=== PATIENT | male | born 1955 | race Caucasian/White ===

== ENCOUNTER 2020-01-13 14:24 | Inpatient (IN) | payer MEDICAID, OTHER ==
[~2020-01-13] VITALS: Ht 170.2 cm; Wt 102.2 kg
[2020-01-13] MEDS ORDERED: SODIUM CHLORIDE 0.9% 1000ML BAG (SEPSIS BOLUS) IV ONE (15:00)
[2020-01-13 15:24] LABS: HEMATOCRIT. 42.8 % (42.0-52.0); HEMOGLOBIN. 13.6 g/dL (14.0-18.0); MEAN CORPUSCULAR HEMOGLOBIN 31.2 pg (28.0-32.0); MEAN CORPUSCULAR VOLUME 98.3 fL (80.0-94.0); MEAN PLATELET VOLUME 11.4 fl (7.4-10.4); PLATELET 51 x1000/uL (130-400); RED BLOOD CELL COUNT 4.35 mill/uL (4.7-6.1); RED CELL DISTRIBUTION WIDTH 15.7 % (11.6-14.6)
[2020-01-13 15:27] LABS: CHLORIDE 84 mEq/L (98-107)
[2020-01-13 15:30] LABS: ETHANOL BLOOD < 10 mg/dL; PROTHROMBIN TIME 10.5 sec (9.6-11.0)
[2020-01-13] MEDS ORDERED: INSULIN REGULAR (DRIP) 100 UNITS in SODIUM CHLORIDE 0.9% 100 ML IV ONE (15:45)
[2020-01-13] MEDS ORDERED: LACTATED RINGERS 1,000 ML IV SCH ×3 (16:00→22:30)
[2020-01-13 16:07] LABS: BETA HYDROXYBUTYRATE 14.2 mMol/L (0.0-0.3)
[2020-01-13 16:12] LABS: PHOSPHORUS 5.3 mg/dL (2.5-4.9)
[2020-01-13] MEDS ORDERED: CEFTRIAXONE 1 G PREMIX 50 ML IV ONE (16:15)
[2020-01-13] MEDS ORDERED: METRONIDAZOLE 500 MG PREMIX 100 ML IV ONE (16:15)
[2020-01-13 16:22] LABS: BG BASE EXCESS -24.8 mmol/L (-2.0-2.0); BG CARBOXYHEMOGLOBIN 0.6 % (0.5-1.5); BG DEOXYHEMOGLOBIN 1.6 % (0.0-5.0); BG FRACTION INSPIRED OXYGEN 21; BG HCO3 ACT 2.9 mmol/L (22.0-26.0); BG METHEMOGLOBIN 0.4 % (0.0-1.5); BG OXYGEN SATURATION 98.4 % (92.0-98.5); BG OXYHEMOGLOBIN 97.4 % (94.0-97.0); BG PCO2 9.9 mmHg (35.0-45.0); BG PH 7.078 (7.350-7.450); BG PO2 146.3 mmHg (75.0-100.0); BG SAMPLE SITE RIGHT BRACHIAL; BG TOTAL HEMOGLOBIN 14.4 g/dL (12.0-18.0); BG VENT MODE ROOM AIR
[2020-01-13 16:27] LABS: CLARITY URINE CLEAR (CLEAR); COLOR URINE YELLOW (YELLOW); KETONES URINE 3+ (NEGATIVE); LEUKOCYTE ESTERASE URINE NEGATIVE (NEGATIVE); NITRITE URINE NEGATIVE (NEGATIVE); OCCULT BLOOD URINE 3+ (NEGATIVE); PROTEIN URINE 2+ (NEGATIVE); SPECIFIC GRAVITY URINE 1.024 (1.005-1.030); UROBILINOGEN URINE 0.2 E.U./dL (0.2-1.0)
[2020-01-13 17:33] LABS: PLATELET ESTIMATE DECREASED
[2020-01-13] MEDS ORDERED: IOHEXOL-300 100 ML BOTTLE ONE (18:17)
[2020-01-13 19:21] LABS: PHOSPHORUS 4.5 mg/dL (2.5-4.9)
[2020-01-13 19:51] LABS: BG BASE EXCESS -21.5 mmol/L (-2.0-2.0); BG CARBOXYHEMOGLOBIN 0.5 % (0.5-1.5); BG DEOXYHEMOGLOBIN 1.5 % (0.0-5.0); BG FRACTION INSPIRED OXYGEN 21; BG HCO3 ACT 4.8 mmol/L (22.0-26.0); BG METHEMOGLOBIN 0.2 % (0.0-1.5); BG OXYGEN SATURATION 98.5 % (92.0-98.5); BG OXYHEMOGLOBIN 97.8 % (94.0-97.0); BG PCO2 13.8 mmHg (35.0-45.0); BG PH 7.155 (7.350-7.450); BG PO2 136.7 mmHg (75.0-100.0); BG SAMPLE SITE LEFT RADIAL; BG TOTAL HEMOGLOBIN 14.6 g/dL (12.0-18.0); BG VENT MODE ROOM AIR
[2020-01-13] MEDS ORDERED: INSULIN REGULAR (DRIP) 100 UNITS in SODIUM CHLORIDE 0.9% 99 ML IV SCH (22:30)
[2020-01-13 23:00] LABS: BG CARBOXYHEMOGLOBIN 0.9 % (0.5-1.5); BG DEOXYHEMOGLOBIN 2.1 % (0.0-5.0); BG FRACTION INSPIRED OXYGEN 21; BG HCO3 ACT 9.5 mmol/L (22.0-26.0); BG OXYGEN SATURATION 97.9 % (92.0-98.5); BG PCO2 18.7 mmHg (35.0-45.0); BG PH 7.322 (7.350-7.450); BG PO2 100.7 mmHg (75.0-100.0); BG SAMPLE SITE LEFT RADIAL; BG TOTAL HEMOGLOBIN 14.4 g/dL (12.0-18.0); BG VENT MODE ROOM AIR
[2020-01-13 23:08] LABS: CHLORIDE 97 mEq/L (98-107)
[2020-01-13 23:18] LABS: PHOSPHORUS 2.4 mg/dL (2.5-4.9)
[2020-01-14] VITALS (20 sets, daily range): BP systolic 122–149; BP diastolic 66–77
[2020-01-14] MEDS ORDERED: ACETAMINOPHEN 325MG TABLET PO PRN (09:00)
[2020-01-14] MEDS ORDERED: ONDANSETRON HCL 4MG/2ML INJ IV PRN (09:00)
[2020-01-14] MEDS: PANTOPRAZOLE SODIUM 40 MG/VIAL IV SCH (10:14)
[2020-01-14] MEDS: SODIUM CHLORIDE 0.9% 1,000 ML IV SCH ×3 (10:17→19:00)
[2020-01-14 10:36] LABS: HEMATOCRIT. 37.7 % (42.0-52.0); HEMOGLOBIN. 12.9 g/dL (14.0-18.0); MEAN CORPUSCULAR HEMOGLOBIN 30.9 pg (28.0-32.0); MEAN CORPUSCULAR VOLUME 90.2 fL (80.0-94.0); RED BLOOD CELL COUNT 4.18 mill/uL (4.7-6.1); RED CELL DISTRIBUTION WIDTH 15.3 % (11.6-14.6)
[2020-01-14 10:42] LABS: CHLORIDE 103 mEq/L (98-107)
[2020-01-14] MEDS ORDERED: DEXTROSE 50% WATER 50ML SYRINGE IV PRN ×3 (10:45→13:30)
[2020-01-14] MEDS ORDERED: INSULIN REGULAR (DRIP) 100 UNITS in SODIUM CHLORIDE 0.9% 100 ML IV SCH (11:00)
[2020-01-14 11:02] LABS: PHOSPHORUS 0.8 mg/dL (2.5-4.9)
[2020-01-14] MEDS: BLOOD SUGAR DIAGNOSTIC STRIP TEST SCH ×5 (11:17→21:28)
[2020-01-14] MEDS: CEFEPIME 1,000 MG in DEXTROSE 5% WATER 50 ML IV SCH ×2 (11:24→23:38)
[2020-01-14 11:58] LABS: PLATELET ESTIMATE MARKEDLY DECREASED
[2020-01-14] MEDS ORDERED: METRONIDAZOLE 500 MG PREMIX 100 ML IV SCH (12:00)
[2020-01-14 12:03] LABS: PLATELET 13 x1000/uL (130-400)
[2020-01-14 12:17] LABS: CHLORIDE 104 mEq/L (98-107)
[2020-01-14] MEDS ORDERED: POTASSIUM PHOS,M-BASIC-D-BASIC 30 MMOL in SODIUM CHLORIDE 0.9% 500 ML IV SCH (13:00)
[2020-01-14] MEDS ORDERED: INSULIN GLARGINE UD 100 UNITS/ML SYR SUBCUT SCH ×2 (14:00→22:00)
[2020-01-14] MEDS ORDERED: LACTATED RINGERS 1,000 ML IV SCH ×3 (16:00→22:30)
[2020-01-14 16:49] LABS: CHLORIDE 105 mEq/L (98-107)
[2020-01-14] MEDS: INSULIN LISPRO 100 UNITS/ML SUBCUT SCH ×2 (17:01→21:35)
[2020-01-14 21:11] LABS: CHLORIDE 106 mEq/L (98-107)
[2020-01-14] MEDS: METRONIDAZOLE 500 MG PREMIX 100 ML IV SCH (22:14)
[2020-01-15] VITALS: BP 110/68
[2020-01-15 00:40] LABS: CHLORIDE 107 mEq/L (98-107)
[2020-01-15] MEDS: SODIUM CHLORIDE 0.9% 1,000 ML IV SCH ×2 (05:37→17:36)
[2020-01-15] MEDS: METRONIDAZOLE 500 MG PREMIX 100 ML IV SCH ×3 (05:44→21:07)
[2020-01-15 06:43] LABS: HEMOGLOBIN. 12.3 g/dL (14.0-18.0); MEAN CORPUSCULAR HEMOGLOBIN 30.9 pg (28.0-32.0); MEAN CORPUSCULAR VOLUME 90.3 fL (80.0-94.0); MEAN PLATELET VOLUME 10.5 fl (7.4-10.4); RED BLOOD CELL COUNT 3.98 mill/uL (4.7-6.1); RED CELL DISTRIBUTION WIDTH 15.3 % (11.6-14.6)
[2020-01-15] MEDS: BLOOD SUGAR DIAGNOSTIC STRIP TEST SCH ×4 (06:57→20:51)
[2020-01-15 06:59] LABS: CHLORIDE 106 mEq/L (98-107)
[2020-01-15 07:03] LABS: PLATELET 15 x1000/uL (130-400)
[2020-01-15 07:08] LABS: PHOSPHORUS 1.3 mg/dL (2.5-4.9)
[2020-01-15 08:00] VITALS: BP 133/70
[2020-01-15] MEDS: INSULIN LISPRO 100 UNITS/ML SUBCUT SCH ×4 (08:11→21:03)
[2020-01-15] MEDS: PANTOPRAZOLE SODIUM 40 MG/VIAL IV SCH (08:11)
[2020-01-15 08:21] LABS: ATYPICAL LYMPHOCYTES 1; PLATELET ESTIMATE MARKEDLY DECREASED
[2020-01-15 08:27] LABS: BG CARBOXYHEMOGLOBIN 1.3 % (0.5-1.5); BG DEOXYHEMOGLOBIN 3.7 % (0.0-5.0); BG HCO3 ACT 17.9 mmol/L (22.0-26.0); BG METHEMOGLOBIN 0.1 % (0.0-1.5); BG OXYGEN SATURATION 96.2 % (92.0-98.5); BG OXYHEMOGLOBIN 94.9 % (94.0-97.0); BG PCO2 27.3 mmHg (35.0-45.0); BG PH 7.434 (7.350-7.450); BG PO2 79.2 mmHg (75.0-100.0); BG SAMPLE SITE RIGHT RADIAL; BG TOTAL HEMOGLOBIN 12.7 g/dL (12.0-18.0); BG VENT MODE ROOM AIR
[2020-01-15 09:09] LABS: CHLORIDE 106 mEq/L (98-107)
[2020-01-15] MEDS: INSULIN GLARGINE UD 100 UNITS/ML SYR SUBCUT SCH ×2 (10:07→21:03)
[2020-01-15] MEDS ORDERED: POTASSIUM PHOS,M-BASIC-D-BASIC 20 MMOL in DEXT 5% WATER 243.3333 ML IV NR (10:30)
[2020-01-15] MEDS: CEFEPIME 1,000 MG in DEXTROSE 5% WATER 50 ML IV SCH ×2 (11:22→22:43)
[2020-01-15 12:00] VITALS: BP 135/68
[2020-01-15] MEDS ORDERED: INFLUENZA VACCINE 05/PF 0.5 ML VIAL IM ONE (12:45)
[2020-01-15] MEDS ORDERED: PNEUMOCOCCAL 23-VAL P-SAC VAC 0.5 ML IM ONE (13:00)
[2020-01-15 13:17] LABS: CHLORIDE 106 mEq/L (98-107)
[2020-01-15 16:00] VITALS: BP 140/75
[2020-01-15 16:42] LABS: CHLORIDE 105 mEq/L (98-107)
[2020-01-15 20:00] VITALS: BP 144/79
[2020-01-15 20:54] LABS: CHLORIDE 108 mEq/L (98-107)
[2020-01-16] VITALS: BP 140/76
[2020-01-16 04:00] VITALS: BP 141/76
[2020-01-16] MEDS: METRONIDAZOLE 500 MG PREMIX 100 ML IV SCH (05:45)
[2020-01-16] MEDS: SODIUM CHLORIDE 0.9% 1,000 ML IV SCH ×2 (05:51→14:00)
[2020-01-16 06:56] LABS: HEMOGLOBIN. 12.2 g/dL (14.0-18.0); MEAN CORPUSCULAR HEMOGLOBIN 30.6 pg (28.0-32.0); MEAN CORPUSCULAR VOLUME 90.6 fL (80.0-94.0); MEAN PLATELET VOLUME 11.4 fl (7.4-10.4); RED BLOOD CELL COUNT 3.98 mill/uL (4.7-6.1); RED CELL DISTRIBUTION WIDTH 15.7 % (11.6-14.6)
[2020-01-16 06:56] LABS: CHLORIDE 107 mEq/L (98-107)
[2020-01-16] MEDS: BLOOD SUGAR DIAGNOSTIC STRIP TEST SCH ×4 (07:14→20:15)
[2020-01-16 08:01] LABS: PLATELET 25 x1000/uL (130-400)
[2020-01-16 08:02] VITALS: BP 138/78
[2020-01-16] MEDS: PANTOPRAZOLE SODIUM 40 MG/VIAL IV SCH (08:15)
[2020-01-16] MEDS: INSULIN LISPRO 100 UNITS/ML SUBCUT SCH ×4 (08:16→20:31)
[2020-01-16] MEDS: INSULIN GLARGINE UD 100 UNITS/ML SYR SUBCUT SCH ×2 (10:17→23:02)
[2020-01-16] MEDS: CEFEPIME 1,000 MG in DEXTROSE 5% WATER 50 ML IV SCH (11:11)
[2020-01-16 11:58] VITALS: BP 143/72
[2020-01-16] MEDS: MEROPENEM 1,000 MG in SODIUM CHLORIDE 0.9% 100 ML IV SCH ×2 (13:00→21:05)
[2020-01-16 13:28] LABS: PLATELET ESTIMATE MARKEDLY DECREASED
[2020-01-16 15:58] VITALS: BP 121/73
[2020-01-16 20:00] VITALS: BP 140/70
[2020-01-17] VITALS: BP 133/67
[2020-01-17] MEDS: SODIUM CHLORIDE 0.9% 1,000 ML IV SCH ×3 (02:31→22:49)
[2020-01-17 04:00] VITALS: BP 120/60
[2020-01-17] MEDS: MEROPENEM 1,000 MG in SODIUM CHLORIDE 0.9% 100 ML IV SCH ×3 (05:33→21:21)
[2020-01-17] MEDS: BLOOD SUGAR DIAGNOSTIC STRIP TEST SCH ×4 (05:46→21:21)
[2020-01-17] MEDS: INSULIN LISPRO 100 UNITS/ML SUBCUT SCH ×4 (06:32→21:57)
[2020-01-17 06:35] LABS: HEMATOCRIT. 33.6 % (42.0-52.0); HEMOGLOBIN. 11.5 g/dL (14.0-18.0); MEAN CORPUSCULAR HEMOGLOBIN 30.6 pg (28.0-32.0); MEAN CORPUSCULAR VOLUME 89.6 fL (80.0-94.0); MEAN PLATELET VOLUME 10.5 fl (7.4-10.4); RED BLOOD CELL COUNT 3.75 mill/uL (4.7-6.1); RED CELL DISTRIBUTION WIDTH 15.9 % (11.6-14.6)
[2020-01-17 06:37] LABS: CHLORIDE 111 mEq/L (98-107)
[2020-01-17 07:10] LABS: PLATELET 49 x1000/uL (130-400)
[2020-01-17 07:48] VITALS: BP 124/70
[2020-01-17] MEDS: PANTOPRAZOLE SODIUM 40 MG/VIAL IV SCH (09:14)
[2020-01-17] MEDS: INSULIN GLARGINE UD 100 UNITS/ML SYR SUBCUT SCH ×2 (10:53→21:57)
[2020-01-17 10:57] LABS: PLATELET ESTIMATE DECREASED
[2020-01-17 11:26] VITALS: BP 115/66
[2020-01-17 15:56] VITALS: BP 129/76
[2020-01-17 20:00] VITALS: BP 139/86
[2020-01-18] VITALS: BP 121/69
[2020-01-18 04:00] VITALS: BP 129/73
[2020-01-18 06:04] LABS: HEMATOCRIT. 33.1 % (42.0-52.0); HEMOGLOBIN. 11.3 g/dL (14.0-18.0); MEAN CORPUSCULAR HEMOGLOBIN 30.7 pg (28.0-32.0); MEAN CORPUSCULAR VOLUME 89.7 fL (80.0-94.0); MEAN PLATELET VOLUME 10.1 fl (7.4-10.4); PLATELET 96 x1000/uL (130-400); RED BLOOD CELL COUNT 3.69 mill/uL (4.7-6.1); RED CELL DISTRIBUTION WIDTH 15.6 % (11.6-14.6)
[2020-01-18] MEDS: MEROPENEM 1,000 MG in SODIUM CHLORIDE 0.9% 100 ML IV SCH ×2 (06:08→14:34)
[2020-01-18] MEDS: SODIUM CHLORIDE 0.9% 1,000 ML IV SCH (06:27)
[2020-01-18 06:48] LABS: CHLORIDE 108 mEq/L (98-107)
[2020-01-18] MEDS: BLOOD SUGAR DIAGNOSTIC STRIP TEST SCH ×4 (07:31→21:02)
[2020-01-18] MEDS: INSULIN LISPRO 100 UNITS/ML SUBCUT SCH ×4 (07:31→21:08)
[2020-01-18 08:00] VITALS: BP 119/64
[2020-01-18] MEDS: INSULIN GLARGINE UD 100 UNITS/ML SYR SUBCUT SCH ×2 (10:13→21:50)
[2020-01-18] MEDS: PANTOPRAZOLE SODIUM 40 MG/VIAL IV SCH (10:13)
[2020-01-18 12:19] VITALS: BP 126/70
[2020-01-18 14:01] LABS: PLATELET ESTIMATE DECREASED
[2020-01-18 20:00] VITALS: BP 114/67
[2020-01-19] VITALS: BP 117/66
[2020-01-19] MEDS: MEROPENEM 1,000 MG in SODIUM CHLORIDE 0.9% 100 ML IV SCH ×4 (00:05→21:45)
[2020-01-19 04:00] VITALS: BP 130/64
[2020-01-19] MEDS: BLOOD SUGAR DIAGNOSTIC STRIP TEST SCH ×4 (07:29→20:44)
[2020-01-19 07:36] LABS: HEMOGLOBIN. 11.2 g/dL (14.0-18.0); MEAN CORPUSCULAR HEMOGLOBIN 30.4 pg (28.0-32.0); MEAN CORPUSCULAR VOLUME 89.6 fL (80.0-94.0); MEAN PLATELET VOLUME 9.8 fl (7.4-10.4); PLATELET 150 x1000/uL (130-400); RED BLOOD CELL COUNT 3.69 mill/uL (4.7-6.1); RED CELL DISTRIBUTION WIDTH 15.5 % (11.6-14.6)
[2020-01-19] MEDS: INSULIN LISPRO 100 UNITS/ML SUBCUT SCH ×4 (07:50→20:44)
[2020-01-19] MEDS ORDERED: LANTUSUD SUBCUT (07:59)
[2020-01-19] MEDS ORDERED: INSLIS SUBCUT (07:59)
[2020-01-19] MEDS ORDERED: BLOO-1465 MT (07:59)
[2020-01-19 08:00] VITALS: BP 115/63
[2020-01-19 08:55] LABS: CHLORIDE 109 mEq/L (98-107)
[2020-01-19] MEDS: PANTOPRAZOLE SODIUM 40 MG/VIAL IV SCH (09:00)
[2020-01-19] MEDS: INSULIN GLARGINE UD 100 UNITS/ML SYR SUBCUT SCH ×2 (09:01→21:47)
[2020-01-19 12:00] VITALS: BP 111/69
[2020-01-19] MEDS: SODIUM CHLORIDE 0.9% 1,000 ML IV SCH (12:27)
[2020-01-19 13:34] LABS: PLATELET ESTIMATE NORMAL
[2020-01-19 16:00] VITALS: BP 127/71
[2020-01-19 20:00] VITALS: BP 116/62
[2020-01-19] MEDS: FAMOTIDINE 20MG/2ML VIAL IV SCH (20:43)
[2020-01-20] VITALS: BP 120/60
[2020-01-20] MEDS: SODIUM CHLORIDE 0.9% 1,000 ML IV SCH ×2 (01:18→21:48)
[2020-01-20 04:00] VITALS: BP 118/62
[2020-01-20] MEDS: MEROPENEM 1,000 MG in SODIUM CHLORIDE 0.9% 100 ML IV SCH ×3 (05:58→21:49)
[2020-01-20] MEDS: BLOOD SUGAR DIAGNOSTIC STRIP TEST SCH ×4 (06:29→21:38)
[2020-01-20] MEDS: INSULIN LISPRO 100 UNITS/ML SUBCUT SCH ×4 (06:29→21:48)
[2020-01-20 06:55] LABS: HEMATOCRIT. 26.8 % (42.0-52.0); HEMOGLOBIN. 9.2 g/dL (14.0-18.0); MEAN CORPUSCULAR HEMOGLOBIN 31.3 pg (28.0-32.0); MEAN CORPUSCULAR VOLUME 91.2 fL (80.0-94.0); MEAN PLATELET VOLUME 9.6 fl (7.4-10.4); PLATELET 177 x1000/uL (130-400); RED BLOOD CELL COUNT 2.94 mill/uL (4.7-6.1); RED CELL DISTRIBUTION WIDTH 15.1 % (11.6-14.6)
[2020-01-20 07:21] LABS: CHLORIDE 111 mEq/L (98-107)
[2020-01-20 08:00] VITALS: BP 122/56
[2020-01-20] MEDS: FAMOTIDINE 20MG/2ML VIAL IV SCH ×3 (09:20→21:48)
[2020-01-20 10:04] LABS: PLATELET ESTIMATE NORMAL
[2020-01-20] MEDS: INSULIN GLARGINE UD 100 UNITS/ML SYR SUBCUT SCH ×2 (10:32→23:07)
[2020-01-20 12:00] VITALS: BP 104/62
[2020-01-20 16:02] VITALS: BP 114/60
[2020-01-20 20:00] VITALS: BP 123/64
[2020-01-21] VITALS: BP 118/62
[2020-01-21 04:00] VITALS: BP 120/66
[2020-01-21] MEDS: MEROPENEM 1,000 MG in SODIUM CHLORIDE 0.9% 100 ML IV SCH ×3 (04:30→21:25)
[2020-01-21 05:57] LABS: HEMATOCRIT. 26.9 % (42.0-52.0); HEMOGLOBIN. 9.2 g/dL (14.0-18.0); MEAN CORPUSCULAR HEMOGLOBIN 30.9 pg (28.0-32.0); MEAN CORPUSCULAR VOLUME 90.6 fL (80.0-94.0); MEAN PLATELET VOLUME 9.4 fl (7.4-10.4); PLATELET 229 x1000/uL (130-400); RED BLOOD CELL COUNT 2.97 mill/uL (4.7-6.1); RED CELL DISTRIBUTION WIDTH 15.1 % (11.6-14.6)
[2020-01-21 06:16] LABS: CHLORIDE 109 mEq/L (98-107)
[2020-01-21] MEDS: BLOOD SUGAR DIAGNOSTIC STRIP TEST SCH ×3 (07:27→21:26)
[2020-01-21] MEDS: INSULIN LISPRO 100 UNITS/ML SUBCUT SCH ×3 (07:28→21:00)
[2020-01-21 08:00] VITALS: BP 140/63
[2020-01-21] MEDS: FAMOTIDINE 20MG/2ML VIAL IV SCH ×2 (08:35→21:25)
[2020-01-21] MEDS: INSULIN GLARGINE UD 100 UNITS/ML SYR SUBCUT SCH (10:40)
[2020-01-21 12:00] VITALS: BP 146/73
[2020-01-21 12:19] LABS: ATYPICAL LYMPHOCYTES 2
[2020-01-21 12:21] LABS: PLATELET ESTIMATE NORMAL
[2020-01-21 16:00] VITALS: BP 144/67
[2020-01-21 20:00] VITALS: BP 144/75
[2020-01-22] VITALS: BP 124/66
[2020-01-22] MEDS: INSULIN GLARGINE UD 100 UNITS/ML SYR SUBCUT SCH ×3 (00:23→22:00)
[2020-01-22 04:00] VITALS: BP 133/61
[2020-01-22] MEDS: MEROPENEM 1,000 MG in SODIUM CHLORIDE 0.9% 100 ML IV SCH ×2 (06:24→15:29)
[2020-01-22] MEDS: BLOOD SUGAR DIAGNOSTIC STRIP TEST SCH ×4 (06:24→21:00)
[2020-01-22 07:31] LABS: BASOPHILS % 0.5 % (0.0-2.0); HEMATOCRIT. 28.3 % (42.0-52.0); HEMOGLOBIN. 9.5 g/dL (14.0-18.0); LYMPHOCYTES % 8.2 % (20.0-50.0); MEAN CORPUSCULAR HEMOGLOBIN 30.4 pg (28.0-32.0); MEAN CORPUSCULAR VOLUME 90.8 fL (80.0-94.0); MEAN PLATELET VOLUME 8.7 fl (7.4-10.4); MONOCYTES % 7.9 % (2.0-8.0); NEUTROPHILS % 83.4 % (40.0-76.0); PLATELET 345 x1000/uL (130-400); RED BLOOD CELL COUNT 3.12 mill/uL (4.7-6.1); RED CELL DISTRIBUTION WIDTH 15.1 % (11.6-14.6)
[2020-01-22] MEDS: INSULIN LISPRO 100 UNITS/ML SUBCUT SCH ×4 (07:50→21:00)
[2020-01-22 08:00] VITALS: BP 126/63
[2020-01-22 08:14] LABS: CHLORIDE 111 mEq/L (98-107)
[2020-01-22] MEDS: FAMOTIDINE 20MG/2ML VIAL IV SCH ×2 (10:37→22:23)
[2020-01-22 12:00] VITALS: BP 132/68
[2020-01-22 16:00] VITALS: BP 119/62
[2020-01-22 20:00] VITALS: BP 133/69
[2020-01-22] MEDS ORDERED: VANCOMYCIN 2,000 MG in DEXT 5% WATER 500 ML IV SCH (21:00)
[2020-01-23] VITALS: BP 134/71
[2020-01-23] MEDS: MEROPENEM 1,000 MG in SODIUM CHLORIDE 0.9% 100 ML IV SCH (02:02)
[2020-01-23 04:00] VITALS: BP 119/60
[2020-01-23 05:11] LABS: HIV SCREEN 4G Non Reactive (Non Reactive)
[2020-01-23] MEDS: BLOOD SUGAR DIAGNOSTIC STRIP TEST SCH ×3 (07:20→17:29)
[2020-01-23] MEDS: INSULIN LISPRO 100 UNITS/ML SUBCUT SCH ×3 (07:50→17:37)
[2020-01-23 08:00] VITALS: BP 130/62
[2020-01-23] MEDS ORDERED: VANCOMYCIN 1250MG in DEXTROSE 5% WATER 250ML IV SCH (09:00)
[2020-01-23] MEDS: FAMOTIDINE 20MG/2ML VIAL IV SCH (10:10)
[2020-01-23] MEDS: INSULIN GLARGINE UD 100 UNITS/ML SYR SUBCUT SCH (10:33)
[2020-01-23 12:00] VITALS: BP 136/72
[2020-01-23 16:00] VITALS: BP 129/81
[2020-01-23 20:00] VITALS: BP 139/69
== END 2020-01-23 19:45 | disposition home or self-care (01) | DRG 720 ==
LOC: ER 14:24 → MICUSO 17:31 → EDBEDREQTM 17:32 → EDBEDREQSVC 17:32 → EDBEDREQ 17:32 → MICUSO 01-14 08:24 → 6WST 01-14 18:30 → 6EST 01-18 15:18
PROVIDERS: ADMIT Internal Medicine; ATTEND Internal Medicine
PROC: 0HDMXZZ Extraction of Right Foot Skin, External Approach (ICD-10-PCS; principal; 2020-01-19)
PROC: 02HV33Z Insertion of Infusion Device into Superior Vena Cava, Percutaneous Approach (ICD-10-PCS; 2020-01-19)
PROC: B548ZZA Ultrasonography of Superior Vena Cava, Guidance (ICD-10-PCS; 2020-01-19)
PROC: B5181ZA Fluoroscopy of Superior Vena Cava using Low Osmolar Contrast, Guidance (ICD-10-PCS; 2020-01-19)
DX: A41.9 Sepsis, unspecified organism (principal); E11.10 Type 2 diabetes mellitus with ketoacidosis without coma; E43 Unspecified severe protein-calorie malnutrition; E66.9 Obesity, unspecified; E87.1 Hypo-osmolality and hyponatremia; E87.5 Hyperkalemia; E87.8 Other disorders of electrolyte and fluid balance, not elsewhere classified; N17.0 Acute kidney failure with tubular necrosis; D64.9 Anemia, unspecified; I87.2 Venous insufficiency (chronic) (peripheral); L84 Corns and callosities; N50.819 Testicular pain, unspecified; I73.9 Peripheral vascular disease, unspecified; N49.2 Inflammatory disorders of scrotum; Z68.35 Body mass index [BMI] 35.0-35.9, adult; Z79.899 Other long term (current) drug therapy
CPT/HCPCS: 36415; 36573; 36600; 71045; 74177; 76870; 76937; 80048; 80053; 80307; 80320; 80329; 81003; 82010; 82375; 82805; 82962; 83605; 83735; 84100; 84145; 84484; 85025; 87077; 87186; 87389; 90686; 90732; 93005; 93923; 93976; 97116; 97162; 97530; 99291; C1725; C9113; J0692; J0696; J1815; J2185; J3370; J3490; J7030; J7040; J7050; J7060; Q9967; G0480

== ENCOUNTER 2023-08-23 13:45 | Inpatient (IN) | payer MEDICAID ==
[~2023-08-23] VITALS: Ht 177.8 cm; Wt 127.9 kg
[~2023-08-23 13:45] MED LIST: BLOO-1465 MT; INSLIS SUBCUT; LANTUSUD SUBCUT
[2023-08-23 15:07] LABS: HEMATOCRIT. 36.5 % (42.0-52.0); HEMOGLOBIN. 12.5 g/dL (14.0-18.0); MEAN CORPUSCULAR HGB CONC 34.2 g/dL (31.0-37.0); MEAN CORPUSCULAR VOLUME 93.4 fL (80.0-94.0); PLATELET 161 x1000/uL (130-400); RED BLOOD CELL COUNT 3.91 mill/uL (4.7-6.1); RED CELL DISTRIBUTION WIDTH 14.1 % (11.6-14.6); WHITE BLOOD COUNT 12.8 x1000/uL (4.5-11.0)
[2023-08-23 15:08] LABS: DIFFERENTIAL COMMENT 1
[2023-08-23 15:11] LABS: CHLORIDE 94 mEq/L (98-107); POTASSIUM 3.5 mEq/L (3.5-5.1); SODIUM 127 mEq/L (136-145)
[2023-08-23 15:12] LABS: CARBON DIOXIDE 17 mEq/L (21-32)
[2023-08-23 15:13] LABS: CALCIUM 6.3 mg/dL (8.7-10.4)
[2023-08-23 15:19] LABS: ALANINE AMINOTRANSFERASE 28 IU/L (10-49); ALBUMIN 2.6 g/dL (3.2-4.8); ASPARTATE AMINOTRANSFERASE 33 IU/L (<34); D-DIMER 1.53 mg/L FEU (<0.50); PROTHROMBIN TIME 11.3 sec (9.6-11.0)
[2023-08-23 15:20] LABS: BILIRUBIN TOTAL 0.3 mg/dL (0.1-1.0)
[2023-08-23 15:36] LABS: CREATININE 9.2 mg/dL (0.6-1.3); TROPONIN I HIGH SENSITIVITY 141 ng/L (3.0-53)
[2023-08-23 15:37] LABS: PLATELET ESTIMATE NORMAL
[2023-08-23 16:04] LABS: BETA HYDROXYBUTYRATE 0.3 mMol/L (0.0-0.3)
[2023-08-23 16:05] LABS: GLUCOSE 926 mg/dL (70-105)
[2023-08-23 16:08] LABS: UREA NITROGEN BLOOD 157 mg/dL (9-23)
[2023-08-23] MEDS ORDERED: INSULIN REGULAR (DRIP) 100 UNITS in SODIUM CHLORIDE 0.9% 99 ML IV SCH (17:00)
[2023-08-23] MEDS ORDERED: DEXTROSE 50% WATER 50ML SYRINGE IV PRN (17:00)
[2023-08-23] MEDS ORDERED: KCL 20MEQ/100ML PREMIX 100 ML IV PRN (17:00)
[2023-08-23 17:11] LABS: BG BASE EXCESS -11.2 mmol/L (-2.0-2.0); BG CARBOXYHEMOGLOBIN 0.8 % (0.5-1.5); BG DEOXYHEMOGLOBIN 2.3 % (0.0-5.0); BG FRACTION INSPIRED OXYGEN 21; BG HCO3 ACT 13.8 mmol/L (22.0-26.0); BG METHEMOGLOBIN 0.3 % (0.0-1.5); BG OXYGEN SATURATION 97.7 % (92.0-98.5); BG OXYHEMOGLOBIN 96.6 % (94.0-97.0); BG PCO2 28.9 mmHg (35.0-45.0); BG PH 7.298 (7.350-7.450); BG PO2 104.2 mmHg (75.0-100.0); BG SAMPLE SITE LEFT RADIAL; BG TOTAL HEMOGLOBIN 11.8 g/dL (12.0-18.0); BG VENT MODE ROOM AIR
[2023-08-23] MEDS: INSULIN REGULAR 100U/100ML PMX 100 ML IV SCH (17:11)
[2023-08-23] MEDS: BLOOD SUGAR DIAGNOSTIC STRIP TEST SCH (17:13)
[2023-08-23] MEDS ORDERED: LACTATED RINGERS 1,000 ML IV SCH (17:15)
[2023-08-23] MEDS: INSULIN REGULAR (HUMULIN R) 300UNITS/3ML VIAL IV ONE (17:37)
[2023-08-23] MEDS: ASPIRIN 325MG EC TABLET PO ONE (17:38)
[2023-08-23] MEDS: LACTATED RINGERS 1,000 ML IV SCH (17:38)
[2023-08-23] MEDS ORDERED: TRAMADOL 50MG TABLET PO PRN (17:45)
[2023-08-23] MEDS ORDERED: GUAIFENESIN 200MG/10ML SUGAR FREE UDC PO PRN (17:45)
[2023-08-23] MEDS ORDERED: INSULIN REGULAR (DRIP) 100 UNITS in SODIUM CHLORIDE 0.9% 100 ML IV SCH (17:45)
[2023-08-23] MEDS ORDERED: NALOXONE HCL 0.4MG/ML VIAL IV PRN (18:00)
[2023-08-23 18:06] LABS: CHLORIDE 94 mEq/L (98-107); POTASSIUM 3.5 mEq/L (3.5-5.1); SODIUM 127 mEq/L (136-145)
[2023-08-23 18:07] LABS: CALCIUM 6.3 mg/dL (8.7-10.4); CARBON DIOXIDE 16 mEq/L (21-32)
[2023-08-23] MEDS: AMLODIPINE 5MG TABLET PO NR (18:12)
[2023-08-23] MEDS: AMLODIPINE 10MG TABLET PO SCH (18:12)
[2023-08-23] MEDS ORDERED: INSULIN REGULAR 100U/100ML PMX 100 ML IV SCH (18:15)
[2023-08-23] MEDS: ENOXAPARIN 30MG/0.3ML SYR SUBCUT SCH (18:16)
[2023-08-23 18:24] LABS: CREATININE 9.2 mg/dL (0.6-1.3); GLUCOSE 900 mg/dL (70-105); UREA NITROGEN BLOOD 132 mg/dL (9-23)
[2023-08-23 18:25] LABS: PHOSPHORUS 10.9 mg/dL (2.5-4.9); TROPONIN I HIGH SENSITIVITY 137 ng/L (3.0-53)
[2023-08-23 21:51] LABS: POTASSIUM 3.2 mEq/L (3.5-5.1)
[2023-08-23 21:52] LABS: CALCIUM 6.2 mg/dL (8.7-10.4)
[2023-08-23] MEDS: SODIUM CHLORIDE 0.9% 1,000 ML IV SCH (22:00)
[2023-08-23 22:07] LABS: CREATININE 9.4 mg/dL (0.6-1.3)
[2023-08-23 23:00] VITALS: BP_SYST 112; BP_SYST 118; BP_DIAS 56; BP_DIAS 61; PULSE 64; RESP 10; RESP 12; TEMP 97.7
[2023-08-23 23:15] VITALS: BP 114/48; PULSE 61; RESP 9
[2023-08-23 23:30] VITALS: BP 112/61; PULSE 59; RESP 10
[2023-08-23 23:45] VITALS: BP 118/52; PULSE 66; RESP 9
[2023-08-23] MEDS: KCL 20MEQ/100ML PREMIX 100 ML IV NR (23:58)
[2023-08-24] VITALS (84 sets, daily range): BP systolic 98–155; BP diastolic 2–132; PULSE 59–137; RESP 8–20; TEMP 96.8–98.6; O2SAT 98
[2023-08-24 01:15] LABS: CHLORIDE 100 mEq/L (98-107); POTASSIUM 2.9 mEq/L (3.5-5.1); SODIUM 134 mEq/L (136-145)
[2023-08-24 01:16] LABS: CARBON DIOXIDE 16 mEq/L (21-32)
[2023-08-24 01:17] LABS: CALCIUM 6.3 mg/dL (8.7-10.4)
[2023-08-24 01:36] LABS: CREATININE 9.5 mg/dL (0.6-1.3); GLUCOSE 447 mg/dL (70-105); UREA NITROGEN BLOOD 173 mg/dL (9-23)
[2023-08-24] MEDS: KCL 20MEQ/100ML PREMIX 100 ML IV SCH (02:00)
[2023-08-24] MEDS: SODIUM CHL 0.9% + KCL 20MEQ/L 1,000 ML IV SCH (02:14)
[2023-08-24 05:16] LABS: HEMATOCRIT. 32.9 % (42.0-52.0); HEMOGLOBIN. 11.2 g/dL (14.0-18.0); MEAN CORPUSCULAR HEMOGLOBIN 31.6 pg (28.0-32.0); MEAN CORPUSCULAR HGB CONC 34.1 g/dL (31.0-37.0); MEAN CORPUSCULAR VOLUME 92.6 fL (80.0-94.0); MEAN PLATELET VOLUME 8.9 fl (7.4-10.4); PLATELET 125 x1000/uL (130-400); RED BLOOD CELL COUNT 3.55 mill/uL (4.7-6.1); WHITE BLOOD COUNT 14.6 x1000/uL (4.5-11.0)
[2023-08-24 05:24] LABS: DIFFERENTIAL COMMENT 1
[2023-08-24 05:47] LABS: PLATELET ESTIMATE NORMAL; TARGET CELLS 2+; TEAR DROP CELLS 2+
[2023-08-24 05:48] LABS: GIANT PLATELETS FEW; OVALOCYTES 1+
[2023-08-24 07:21] LABS: CHLORIDE 100 mEq/L (98-107); POTASSIUM 3.5 mEq/L (3.5-5.1); SODIUM 132 mEq/L (136-145)
[2023-08-24 07:22] LABS: CALCIUM 6.3 mg/dL (8.7-10.4); CARBON DIOXIDE 13 mEq/L (21-32)
[2023-08-24 08:07] LABS: CREATININE 9.3 mg/dL (0.6-1.3); UREA NITROGEN BLOOD 125 mg/dL (9-23)
[2023-08-24 08:11] LABS: GLUCOSE 409 mg/dL (70-105)
[2023-08-24 08:14] LABS: PHOSPHORUS 10.1 mg/dL (2.5-4.9)
[2023-08-24] MEDS: CALCIUM ACETATE 667MG CAPSULE PO SCH (09:12)
[2023-08-24] MEDS: FOLIC ACID/VITAMIN B COMP W-C TABLET PO SCH (09:12)
[2023-08-24] MEDS ORDERED: IPRATROPIUM/ALBUTEROL 0.5-3(2.5)MG/3ML NEB HHN PRN (10:30)
[2023-08-24 12:02] LABS: HEPATITIS B SURFACE AB < 3.1 mIU/mL (<10)
[2023-08-24 12:21] LABS: HEPATITIS B SURFACE ANTIGEN NEGATIVE (Negative)
[2023-08-24 12:34] LABS: HEPATITIS A AB IGM NEGATIVE (Negative)
[2023-08-24 12:36] LABS: HEPATITIS C AB REACTIVE (Pos) (Negative)
[2023-08-24 12:42] LABS: HEPATITIS B CORE AB IGM NEGATIVE (Negative)
[2023-08-24] MEDS: IPRATROPIUM/ALBUTEROL 0.5-3(2.5)MG/3ML NEB HHN SCH (20:31)
[2023-08-24] MEDS ORDERED: DEXTROSE 50% WATER 50ML SYRINGE IV PRN (23:45)
[2023-08-25] VITALS (60 sets, daily range): BP systolic 100–198; BP diastolic 50–181; PULSE 77–149; RESP 9–25; TEMP 97.9–98.7; O2SAT 95–98
[2023-08-25] MEDS: DILTIAZEM HCL 5MG/ML 5ML VIAL IV NR (03:05)
[2023-08-25 05:26] LABS: POTASSIUM 3.7 mEq/L (3.5-5.1)
[2023-08-25 05:28] LABS: CALCIUM 6.4 mg/dL (8.7-10.4)
[2023-08-25 05:51] LABS: CREATININE 7.8 mg/dL (0.6-1.3)
[2023-08-25] MEDS: BLOOD SUGAR DIAGNOSTIC STRIP TEST SCH (07:50)
[2023-08-25] MEDS: INSULIN GLARGINE 100 UNITS/ML SUBCUT SCH (09:25)
[2023-08-25] MEDS: INSULIN LISPRO 100 UNITS/ML SUBCUT SCH (09:25)
[2023-08-25] MEDS: ENOXAPARIN 150MG/ML SYR SUBCUT SCH (13:20)
[2023-08-25 13:34] LABS: T4 FREE 0.73 ng/dL (0.89-1.76); THYROID STIMULATING HORMONE 1.8 uIU/mL (0.55-4.78)
[2023-08-25] MEDS ORDERED: GABA-529 MT (16:34)
[2023-08-25] MEDS ORDERED: LOSA50TA41 PO (16:38)
[2023-08-25] MEDS ORDERED: CALC0.5C10 PO (16:38)
[2023-08-25] MEDS ORDERED: FURO40TA5 PO (16:39)
[2023-08-25] MEDS ORDERED: HYDR25TA PO (16:40)
[2023-08-25] MEDS ORDERED: METO-385 PO (16:40)
[2023-08-25] MEDS ORDERED: SEVE800T8 PO (16:41)
[2023-08-25] MEDS: BACITRACIN 14GM TUBE TOP SCH (21:30)
[2023-08-25 21:57] LABS: TROPONIN I HIGH SENSITIVITY 129 ng/L (3.0-53)
[2023-08-26] VITALS (10 sets, daily range): BP systolic 124–157; BP diastolic 60–91; PULSE 65–111; RESP 16–22; TEMP 97.3–99.5; O2SAT 92–98
[2023-08-26] MEDS: DOCUSATE SODIUM 100MG CAPSULE PO PRN (10:19)
[2023-08-26] MEDS ORDERED: LACTULOSE 20G/30ML UDC PO PRN (11:45)
[2023-08-26] MEDS: POLYETHYLENE GLYCOL 3350 (17GM) 1 DOSE PACK PO SCH (13:36)
[2023-08-27] VITALS (18 sets, daily range): BP systolic 135–188; BP diastolic 54–85; PULSE 57–108; RESP 16–20; TEMP 97.1–99.5; O2SAT 92–94
[2023-08-27 12:09] LABS: CALCIUM 7.7 mg/dL (8.7-10.4)
[2023-08-27 12:15] LABS: HEMATOCRIT. 31.2 % (42.0-52.0); HEMOGLOBIN. 10.7 g/dL (14.0-18.0); MEAN CORPUSCULAR HGB CONC 34.5 g/dL (31.0-37.0); MEAN PLATELET VOLUME 10.2 fl (7.4-10.4); PLATELET 141 x1000/uL (130-400); RED BLOOD CELL COUNT 3.46 mill/uL (4.7-6.1); RED CELL DISTRIBUTION WIDTH 13.9 % (11.6-14.6)
[2023-08-27 12:19] LABS: DIFFERENTIAL COMMENT 1
[2023-08-27 12:54] LABS: CREATININE 6.1 mg/dL (0.6-1.3)
[2023-08-27] MEDS: ALTEPLASE 2MG/VIAL ITC NR (14:00)
[2023-08-27 16:20] LABS: PLATELET ESTIMATE NORMAL
[2023-08-28] VITALS (17 sets, daily range): BP systolic 119–164; BP diastolic 56–77; PULSE 78–100; RESP 16–20; TEMP 97.8–100; O2SAT 94
[2023-08-28 07:17] LABS: POTASSIUM 3.9 mEq/L (3.5-5.1)
[2023-08-28 07:19] LABS: CALCIUM 7.2 mg/dL (8.7-10.4)
[2023-08-28 07:27] LABS: CREATININE 6.7 mg/dL (0.6-1.3)
[2023-08-28 07:31] LABS: HEMATOCRIT. 27.2 % (42.0-52.0); HEMOGLOBIN. 9.2 g/dL (14.0-18.0); MEAN CORPUSCULAR HEMOGLOBIN 31.8 pg (28.0-32.0); MEAN CORPUSCULAR HGB CONC 33.7 g/dL (31.0-37.0); MEAN CORPUSCULAR VOLUME 94.3 fL (80.0-94.0); MEAN PLATELET VOLUME 9.6 fl (7.4-10.4); PLATELET 166 x1000/uL (130-400); RED BLOOD CELL COUNT 2.89 mill/uL (4.7-6.1); RED CELL DISTRIBUTION WIDTH 14.3 % (11.6-14.6); WHITE BLOOD COUNT 8.6 x1000/uL (4.5-11.0)
[2023-08-28 08:09] LABS: DIFFERENTIAL COMMENT 1
[2023-08-28 14:32] LABS: PLATELET ESTIMATE NORMAL
[2023-08-29] VITALS (8 sets, daily range): BP systolic 139–162; BP diastolic 60–89; PULSE 62–100; RESP 16–20; TEMP 97.5–98.7; O2SAT 90–93
[2023-08-29] MEDS: CLONIDINE 0.1MG TABLET PO PRN (21:24)
[2023-08-30] VITALS (15 sets, daily range): BP systolic 130–169; BP diastolic 62–93; PULSE 76–90; RESP 16–21; TEMP 97.3–98.9
[2023-08-30] MEDS: ONDANSETRON HCL 4MG/2ML INJ IV PRN (00:25)
[2023-08-30] MEDS: METOCLOPRAMIDE HCL 10MG/2ML VIAL IV NR (06:34)
[2023-08-30] MEDS: PANTOPRAZOLE SODIUM 40 MG/VIAL IV SCH (06:34)
[2023-08-30 09:41] LABS: HEMATOCRIT 28.6 % (42.0-52.0); HEMOGLOBIN 9.9 g/dL (14.0-18.0)
[2023-08-30 12:38] LABS: HEMOGLOBIN 9.3 g/dL (14.0-18.0)
[2023-08-30 12:58] LABS: POTASSIUM 3.7 mEq/L (3.5-5.1)
[2023-08-30 12:59] LABS: CALCIUM 7.2 mg/dL (8.7-10.4)
[2023-08-30 13:30] LABS: CREATININE 5.7 mg/dL (0.6-1.3)
[2023-08-30 18:20] LABS: HEMATOCRIT 25.2 % (42.0-52.0); HEMOGLOBIN 8.8 g/dL (14.0-18.0)
[2023-08-30 23:42] LABS: HEMATOCRIT 24.4 % (42.0-52.0); HEMOGLOBIN 8.5 g/dL (14.0-18.0)
[2023-08-31] VITALS (14 sets, daily range): BP systolic 128–167; BP diastolic 64–82; PULSE 72–87; RESP 16–22; TEMP 97–98.7
[2023-08-31 07:43] LABS: BASOPHILS % 0.8 % (0.0-2.0); EOSINOPHILS % 1.5 % (0.0-5.0); HEMOGLOBIN. 8.7 g/dL (14.0-18.0); LYMPHOCYTES % 9.6 % (20.0-50.0); MEAN CORPUSCULAR HEMOGLOBIN 31.6 pg (28.0-32.0); MEAN CORPUSCULAR HGB CONC 34.8 g/dL (31.0-37.0); MEAN CORPUSCULAR VOLUME 90.9 fL (80.0-94.0); MEAN PLATELET VOLUME 7.8 fl (7.4-10.4); MONOCYTES % 9.7 % (2.0-8.0); NEUTROPHILS % 78.4 % (40.0-76.0); PLATELET 279 x1000/uL (130-400); RED BLOOD CELL COUNT 2.75 mill/uL (4.7-6.1); RED CELL DISTRIBUTION WIDTH 13.8 % (11.6-14.6); WHITE BLOOD COUNT 5.1 x1000/uL (4.5-11.0)
[2023-08-31 07:52] LABS: CHLORIDE 107 mEq/L (98-107); POTASSIUM 3.4 mEq/L (3.5-5.1); SODIUM 136 mEq/L (136-145)
[2023-08-31 07:53] LABS: CALCIUM 6.8 mg/dL (8.7-10.4); CARBON DIOXIDE 23 mEq/L (21-32)
[2023-08-31 07:58] LABS: GLUCOSE 95 mg/dL (70-105)
[2023-08-31 08:00] LABS: PHOSPHORUS 6.1 mg/dL (2.5-4.9)
[2023-08-31 08:13] LABS: UREA NITROGEN BLOOD 65 mg/dL (9-23)
[2023-08-31 08:36] LABS: CREATININE 6.4 mg/dL (0.6-1.3)
[2023-09-01] VITALS (16 sets, daily range): BP systolic 108–185; BP diastolic 58–86; PULSE 72–83; RESP 16–20; TEMP 97.1–99
[2023-09-01 07:34] LABS: PROTHROMBIN TIME 10.8 sec (9.6-11.0)
[2023-09-01 07:50] LABS: HEMATOCRIT. 22.1 % (42.0-52.0); HEMOGLOBIN. 7.6 g/dL (14.0-18.0); MEAN CORPUSCULAR HEMOGLOBIN 31.4 pg (28.0-32.0); MEAN CORPUSCULAR HGB CONC 34.4 g/dL (31.0-37.0); MEAN CORPUSCULAR VOLUME 91.5 fL (80.0-94.0); MEAN PLATELET VOLUME 8.3 fl (7.4-10.4); PLATELET 307 x1000/uL (130-400); RED BLOOD CELL COUNT 2.41 mill/uL (4.7-6.1); RED CELL DISTRIBUTION WIDTH 13.6 % (11.6-14.6); WHITE BLOOD COUNT 4.4 x1000/uL (4.5-11.0)
[2023-09-01 08:05] LABS: CHLORIDE 104 mEq/L (98-107); POTASSIUM 3.3 mEq/L (3.5-5.1); SODIUM 137 mEq/L (136-145)
[2023-09-01 08:06] LABS: CALCIUM 6.9 mg/dL (8.7-10.4); CARBON DIOXIDE 24 mEq/L (21-32)
[2023-09-01 08:10] LABS: FERRITIN 322 ng/mL (22-322)
[2023-09-01 08:11] LABS: FOLIC ACID (FOLATE) SERUM 12.77 ng/mL (>5.38); GLUCOSE 74 mg/dL (70-105); IRON 29 ug/dL (65-175); UREA NITROGEN BLOOD 69 mg/dL (9-23); VITAMIN B12 SERUM 512 pg/mL (211-911)
[2023-09-01 08:12] LABS: TOTAL IRON BINDING CAPACITY 280 ug/dl (250-425)
[2023-09-01 08:13] LABS: ALANINE AMINOTRANSFERASE 19 IU/L (10-49); ALBUMIN 2.3 g/dL (3.2-4.8); ASPARTATE AMINOTRANSFERASE 27 IU/L (<34)
[2023-09-01 08:14] LABS: BILIRUBIN TOTAL < 0.2 mg/dL (0.1-1.0); PROTEIN TOTAL 4.3 g/dL (6.0-8.3)
[2023-09-01 08:20] LABS: DIFFERENTIAL COMMENT 1
[2023-09-01 08:23] LABS: BILIRUBIN DIRECT < 0.1 mg/dL (<=3.0); CREATININE 6.7 mg/dL (0.6-1.3)
[2023-09-01] MEDS: FERROUS SULFATE 325MG TABLET PO SCH (18:17)
[2023-09-01] MEDS: ASCORBIC ACID 500 MG TABLET PO SCH (18:17)
[2023-09-01] MEDS: PANTOPRAZOLE SODIUM 40 MG/VIAL IV SCH (18:17)
[2023-09-01 18:26] LABS: PLATELET ESTIMATE NORMAL
[2023-09-02] VITALS (16 sets, daily range): BP systolic 124–188; BP diastolic 52–73; PULSE 65–82; RESP 12–20; TEMP 97–100.9
[2023-09-02 09:49] LABS: CARBON DIOXIDE 24 mEq/L (21-32); CHLORIDE 105 mEq/L (98-107); HEMATOCRIT. 24.5 % (42.0-52.0); HEMOGLOBIN. 8.4 g/dL (14.0-18.0); MEAN CORPUSCULAR HEMOGLOBIN 30.4 pg (28.0-32.0); MEAN CORPUSCULAR HGB CONC 34.3 g/dL (31.0-37.0); MEAN CORPUSCULAR VOLUME 88.6 fL (80.0-94.0); MEAN PLATELET VOLUME 8.1 fl (7.4-10.4); PLATELET 302 x1000/uL (130-400); POTASSIUM 3.2 mEq/L (3.5-5.1); RED BLOOD CELL COUNT 2.77 mill/uL (4.7-6.1); RED CELL DISTRIBUTION WIDTH 14.2 % (11.6-14.6); SODIUM 138 mEq/L (136-145); WHITE BLOOD COUNT 4.8 x1000/uL (4.5-11.0)
[2023-09-02 09:50] LABS: CALCIUM 6.9 mg/dL (8.7-10.4)
[2023-09-02 09:54] LABS: GLUCOSE 127 mg/dL (70-105)
[2023-09-02 09:55] LABS: UREA NITROGEN BLOOD 55 mg/dL (9-23)
[2023-09-02 09:56] LABS: ALANINE AMINOTRANSFERASE 19 IU/L (10-49); ALBUMIN 2.6 g/dL (3.2-4.8); ASPARTATE AMINOTRANSFERASE 25 IU/L (<34)
[2023-09-02 09:57] LABS: BILIRUBIN TOTAL 0.2 mg/dL (0.1-1.0); PHOSPHORUS 4.6 mg/dL (2.5-4.9); PROTEIN TOTAL 4.6 g/dL (6.0-8.3)
[2023-09-02 09:59] LABS: DIFFERENTIAL COMMENT 1
[2023-09-02 10:21] LABS: CREATININE 5.8 mg/dL (0.6-1.3)
[2023-09-02] MEDS: CEFAZOLIN 1000MG PREMIX 50 ML IV NR (11:30)
[2023-09-02] MEDS ORDERED: LIDOCAINE HCL 1% 10 MG/ML 10ML VIAL ONE (11:40)
[2023-09-02] MEDS ORDERED: FENTANYL CITRATE/PF 50MCG/ML 2ML VIAL ONE (13:05)
[2023-09-02] MEDS: FENTANYL CITRATE/PF 50MCG/ML 2ML VIAL IV NR (13:05)
[2023-09-02 18:15] LABS: PLATELET ESTIMATE NORMAL
[2023-09-03] VITALS (14 sets, daily range): BP systolic 137–179; BP diastolic 54–87; PULSE 75–86; RESP 17–19; TEMP 97.7–100.6
[2023-09-03] MEDS: ACETAMINOPHEN 325MG TABLET PO PRN (04:43)
[2023-09-03 08:38] LABS: CHLORIDE 104 mEq/L (98-107); HEMATOCRIT 25.5 % (42.0-52.0); MEAN CORPUSCULAR HEMOGLOBIN 31.6 pg (28.0-32.0); MEAN CORPUSCULAR HGB CONC 35.3 g/dL (31.0-37.0); MEAN CORPUSCULAR VOLUME 89.7 fL (80.0-94.0); PLATELET 293 x1000/uL (130-400); POTASSIUM 3.2 mEq/L (3.5-5.1); RED BLOOD CELL COUNT 2.84 mill/uL (4.7-6.1); RED CELL DISTRIBUTION WIDTH 14.8 % (11.6-14.6); SODIUM 138 mEq/L (136-145); WHITE BLOOD COUNT 5.4 x1000/uL (4.5-11.0)
[2023-09-03 08:39] LABS: CARBON DIOXIDE 23 mEq/L (21-32)
[2023-09-03 08:40] LABS: CALCIUM 7.1 mg/dL (8.7-10.4)
[2023-09-03 08:44] LABS: GLUCOSE 106 mg/dL (70-105)
[2023-09-03 08:45] LABS: UREA NITROGEN BLOOD 54 mg/dL (9-23)
[2023-09-03 08:47] LABS: PHOSPHORUS 4.8 mg/dL (2.5-4.9)
[2023-09-03 08:56] LABS: CREATININE 6.3 mg/dL (0.6-1.3)
[2023-09-04] VITALS: BP 133/59; PULSE 85; RESP 19; TEMP 101
[2023-09-04 04:00] VITALS: BP 144/61; PULSE 81; RESP 17; TEMP 97.9
[2023-09-04 07:56] VITALS: BP 155/60; PULSE 72; RESP 19; TEMP 98.5
[2023-09-04 10:42] LABS: CHLORIDE 103 mEq/L (98-107); POTASSIUM 3.1 mEq/L (3.5-5.1); SODIUM 135 mEq/L (136-145)
[2023-09-04 10:43] LABS: CARBON DIOXIDE 25 mEq/L (21-32)
[2023-09-04 11:59] VITALS: BP 142/62; PULSE 78; RESP 20; TEMP 98.7
[2023-09-04 12:48] VITALS: BP 142/62; PULSE 78; TEMP 98.7; O2SAT 95
== END 2023-09-04 14:30 | disposition home or self-care (01) | DRG 420 ==
LOC: ER 14:49 → CVICU 16:49 → EDBEDREQTM 16:50 → EDBEDREQ 16:50 → EDBEDREQSVC 16:50 → 7WST 08-25 22:27
PROVIDERS: ADMIT Hospitalist; ATTEND Hospitalist
PROC: 5A1D70Z Performance of Urinary Filtration, Intermittent, Less than 6 Hours Per Day (ICD-10-PCS; principal; 2023-08-24)
PROC: 05HM33Z Insertion of Infusion Device into Right Internal Jugular Vein, Percutaneous Approach (ICD-10-PCS; 2023-08-24)
PROC: B543ZZA Ultrasonography of Right Jugular Veins, Guidance (ICD-10-PCS; 2023-08-24)
PROC: 05HM33Z Insertion of Infusion Device into Right Internal Jugular Vein, Percutaneous Approach (ICD-10-PCS; 2023-08-24)
PROC: B543ZZA Ultrasonography of Right Jugular Veins, Guidance (ICD-10-PCS; 2023-08-24)
PROC: 5A1D70Z Performance of Urinary Filtration, Intermittent, Less than 6 Hours Per Day (ICD-10-PCS; 2023-08-25)
PROC: 5A1D70Z Performance of Urinary Filtration, Intermittent, Less than 6 Hours Per Day (ICD-10-PCS; 2023-08-27)
PROC: 5A1D70Z Performance of Urinary Filtration, Intermittent, Less than 6 Hours Per Day (ICD-10-PCS; 2023-08-28)
PROC: 5A1D70Z Performance of Urinary Filtration, Intermittent, Less than 6 Hours Per Day (ICD-10-PCS; 2023-08-30)
PROC: 5A1D70Z Performance of Urinary Filtration, Intermittent, Less than 6 Hours Per Day (ICD-10-PCS; 2023-08-31)
PROC: 5A1D70Z Performance of Urinary Filtration, Intermittent, Less than 6 Hours Per Day (ICD-10-PCS; 2023-09-01)
PROC: 30233N1 Transfusion of Nonautologous Red Blood Cells into Peripheral Vein, Percutaneous Approach (ICD-10-PCS; 2023-09-01)
PROC: 0JH63XZ Insertion of Tunneled Vascular Access Device into Chest Subcutaneous Tissue and Fascia, Percutaneous Approach (ICD-10-PCS; 2023-09-02)
PROC: 02HV33Z Insertion of Infusion Device into Superior Vena Cava, Percutaneous Approach (ICD-10-PCS; 2023-09-02)
PROC: B5181ZA Fluoroscopy of Superior Vena Cava using Low Osmolar Contrast, Guidance (ICD-10-PCS; 2023-09-02)
PROC: 5A1D70Z Performance of Urinary Filtration, Intermittent, Less than 6 Hours Per Day (ICD-10-PCS; 2023-09-03)
DX: E11.10 Type 2 diabetes mellitus with ketoacidosis without coma (principal); J96.00 Acute respiratory failure, unspecified whether with hypoxia or hypercapnia; G93.41 Metabolic encephalopathy; I50.33 Acute on chronic diastolic (congestive) heart failure; N17.9 Acute kidney failure, unspecified; K92.0 Hematemesis; N18.6 End stage renal disease; I13.2 Hypertensive heart and chronic kidney disease with heart failure and with stage 5 chronic kidney disease, or end stage renal disease; K80.20 Calculus of gallbladder without cholecystitis without obstruction; R16.0 Hepatomegaly, not elsewhere classified; D64.9 Anemia, unspecified; B19.20 Unspecified viral hepatitis C without hepatic coma; E83.39 Other disorders of phosphorus metabolism; E11.22 Type 2 diabetes mellitus with diabetic chronic kidney disease; E66.01 Morbid (severe) obesity due to excess calories; Z68.41 Body mass index [BMI] 40.0-44.9, adult; Z99.2 Dependence on renal dialysis; K59.00 Constipation, unspecified; I48.0 Paroxysmal atrial fibrillation; E87.6 Hypokalemia; E78.5 Hyperlipidemia, unspecified; E87.1 Hypo-osmolality and hyponatremia; D72.825 Bandemia
CPT/HCPCS: 36415; 36556; 36558; 36573; 36589; 36600; 71045; 76700; 76937; 77001; 80048; 80051; 80053; 80061; 80076; 82010; 82375; 82607; 82728; 82746; 82805; 82962; 83036; 83540; 83550; 83735; 83930; 84100; 84439; 84443; 84484; 85014; 85018; 85025; 85027; 85044; 85379; 86705; 86706; 86709; 86850; 86900; 86920; 87340; 90935; 93005; 93306; 93970; 94640; 99152; 99153; 99291; 99292; A6261; C1725; C1750; C1752; C1769; C1893; C9113; J0690; J1642; J1650; J1815; J2405; J2765; J2997; J3010; J3480; J3490; J7120; P9016; A4315; G0500